=== PATIENT | male | born 1950 | race Caucasian/White ===

== ENCOUNTER 2020-03-21 11:34 | Observation (INO) | payer MEDICARE, SELFPAY ==
[2020-03-21] VITALS (12 sets, daily range): BP systolic 144–171; BP diastolic 63–97; PULSE 68–98; RESP 12–18; TEMP 36.6–36.8; O2SAT 95–98; BMI 34.9; BMI 31.2
--- NOTE | 2020-03-21 11:46 | CT_ITS ---
We are attempting to reach an attending provider to discuss findings. An addendum with communication details will be sent when the communication is complete. STUDY: CTA HEAD AND NECK WITH CONTRAST REASON FOR EXAM: Male, 70 years old. Expressive aphasia, garbled speech, confusion, trouble following commands. RADIATION DOSAGE (If Supplied By Facility): CTDIvol = ( 22.18 ) mGy, DLP = ( 807.76 ) mGycm TECHNIQUE: CT angiography was performed with a multi-detector CT scanner. Data acquisition was obtained from the skull base through the vertex following intravenous administration of IV 100mL Isovue-370. MIP images were reconstructed from the axial data set. Post-processing of the angiographic images was performed, with multiplanar reformation and 3D reconstruction. Individualized dose optimization techniques were used for this CT. COMPARISON: No relevant priors. FINDINGS: Normal bilateral petrous carotid arteries. There is calcified plaque formation of the right cavernous carotid artery, without a cross-sectional luminal stenosis. There is calcified plaque formation of the left cavernous carotid artery, without a cross-sectional luminal stenosis. Normal right A1 segments of the anterior cerebral artery. Normal left A1 segments of the anterior cerebral artery. Normal intact anterior communicating artery (ACOM). Normal bilateral A2 segments of the anterior cerebral arteries. Normal right M1 and M2 segments of the middle cerebral arteries, with a normal M1 bifurcation. Normal left M1 and M2 segments of the middle cerebral arteries, with a normal M1 bifurcation. Normal right posterior communicating artery (PCOM). Normal left posterior communicating artery (PCOM). Normal bilateral vertebral arteries. Normal basilar artery with a normal basilar bifurcation. The visualized bilateral superior cerebellar (SCA) arteries are normal. Normal bilateral P1, P2 and visualized P3 segments of the posterior cerebral arteries. There is no demonstrated aneurysm of the [place]. There is opacification of the right sphenoid sinus and partial opacification of the ethmoid sinuses and left maxillary sinus. AORTIC ARCH: There is atherosclerotic calcific plaque formation of the aortic arch and great vessels arising from the aortic arch, without a hemodynamically significant stenosis. There is a bovine origin of the great vessels with a common origin of the brachiocephalic and left common carotid artery. Normal origin of the left subclavian artery. Atherosclerotic plaque formation at the origin of the left subclavian artery. RIGHT CAROTID ARTERIES: Normal right common carotid artery (CCA). Normal right common carotid bulb. There is mild atherosclerotic plaque formation of the origin of the right internal carotid artery with less than 50% cross sectional diameter stenosis. Normal visualized cervical portion of the right internal carotid artery. Normal origin of the right external carotid artery (ECA). LEFT CAROTID ARTERIES: Normal left common carotid artery (CCA). Normal left common carotid bulb. There is moderate atherosclerotic plaque formation of the origin of the left internal carotid artery with an estimated stenosis of 50-69% stenosis. Normal visualized cervical portion of the left internal carotid artery. Normal origin of the left external carotid artery (ECA). VERTEBRAL ARTERIES: There is enhancement within the bilateral vertebral arteries with a small right vertebral artery, and a dominant left vertebral artery. Nonstenotic calcific plaque is seen in the midportion of the left vertebral artery. CT/STROKE CTA Head AND Neck W/Con IMPRESSION: 50-69% stenosis at the origin of the left internal carotid artery. Less than 50% stenosis at the origin of the right internal carotid artery are Dominant left vertebral artery. Opacification of the right sphenoid sinus and partial opacification of the left maxillary sinus and ethmoid sinus. Electronically Signed: Maxi Mujica, at 12:18 EST , Service support ,
--- NOTE | 2020-03-21 11:46 | CT_ITS ---
STUDY: CT BRAIN WITHOUT CONTRAST REASON FOR EXAM: Male, 70 years old. Expressive aphasia, garbled speech, confusion, trouble following commands. RADIATION DOSAGE (If Supplied By Facility): CTDIvol = ( ) mGy, DLP = ( ) mGycm TECHNIQUE: Transaxial CT imaging of the brain was performed without administration of intravenous contrast material. Individualized dose optimization techniques were used for this CT. COMPARISON: None. FINDINGS: There is cerebral atrophy with widening of the extra-axial spaces and ventricular dilatation. There are areas of decreased attenuation within the white matter tracts of the supratentorial brain, consistent with microvascular disease changes. There is no intracranial hemorrhage. There are no findings of an acute ischemic infarction. There is moderate paranasal sinus disease. CT/STROKE Brain/Head without Cont IMPRESSION: There is no intracranial hemorrhage. N.B. : The above information has been verbally conveyed by Bebe Govea MD to Kunal Gracia MD, on 03/21/2020 12:17:24 (ET). Electronically Signed: Bebe Govea MD at 12:18 EST Tel , Service support ,
--- NOTE | 2020-03-21 11:48 | ED.DCSUM_ITS ---
- ER Visit Summary Date of Service: 03/21/20 Chief Complaint: Difficulty expressing thoughts History of Present Illness: The patient is a [address] Delvis Jon iii. He went to bed last night at 7 PM and was normal. reports that she got up and try to talk to him at 1030 this morning and he is unable to express his thoughts. Patient denies any other symptoms. No numbness, weakness, vertigo, or off balance. Review of systems: General: No fever, chills, cold sweats. Cardiovascular: No chest pain, palpitations. Respiratory: No cough, shortness of breath, dyspnea on exertion. Gastrointestinal: No abdominal pain, nausea, vomiting, diarrhea, melena, or hematochezia. Genitourinary: No dysuria, frequency, hematuria. Skin: No rash. Neuro: No headache, numbness, weakness. Physical Examination: Vitals: Stable. Afebrile. General: Well-nourished and well-developed. Head: Normocephalic atraumatic. Neck: Supple, no lymphadenopathy. No JVD. Nontender. Cardiovascular: Regular rate and rhythm. No murmurs. Respiratory: No respiratory distress. Clear to auscultation bilaterally. Abdominal: Soft, nontender, nondistended, normal bowel sounds. No guarding, rebound, or peritoneal signs. Back: Nontender. Extremities: Nontender, no edema. Skin: Normal color, no rash. Neurologic: Alert and oriented ?3. Cranial nerves II through XII are intact. Normal strength and sensation. He does have a dense expressive aphasia and dysarthria. His NIH scale is 3. Psych: Normal affect. Test Results: EKG is sinus with a first-degree AV block rate of 87. There are PVCs and nonspecific ST changes. Troponin is negative. Potassium is 3.4. H&H is 20.8 and 64.0. Monocytes 15. Clinical Impression(s) from Imaging Studies Brain CT 03/21/20 11:46 IMPRESSION: There is no intracranial hemorrhage. N.B. : The above information has been verbally conveyed by Bebe Govea MD to Kunal Gracia MD, on 03/21/2020 12:17:24 (ET). Electronically Signed: Bebe Govea MD at 12:18 EST Tel , Service support , ADDENDUM: 03/21/20 1225 IMPRESSION: There is no intracranial hemorrhage. N.B. : The above information has been verbally conveyed by Bebe Govea MD to Kunal Gracia MD, on 03/21/2020 12:17:24 (ET). Electronically Signed: Bebe Govea MD at 12:18 EST Tel , Service support , Head/Neck CTA 03/21/20 11:46 IMPRESSION: 50-69% stenosis at the origin of the left internal carotid artery. Less than 50% stenosis at the origin of the right internal carotid artery are Dominant left vertebral artery. Opacification of the right sphenoid sinus and partial opacification of the left maxillary sinus and ethmoid sinus. Electronically Signed: Maxi Mujica, at 12:18 EST , Service support , ADDENDUM: 03/21/20 1227 IMPRESSION: 50-69% stenosis at the origin of the left internal carotid artery. Less than 50% stenosis at the origin of the right internal carotid artery are Dominant left vertebral artery. Opacification of the right sphenoid sinus and partial opacification of the left maxillary sinus and ethmoid sinus. N.B. : The above information has been verbally conveyed by Bebe Govea MD to Kunal Cisse MD, on 03/21/2020 12:20:09 (ET). Electronically Signed: Maxi Mujica, at 12:18 EST , Service support , Chest X-Ray 03/21/20 12:10 IMPRESSION: Borderline cardiomegaly. Electronically Signed: Maxi Mujica, at 12:26 EST , Service support , Emergency Department Course and Treatment: Patient's NIH scale is 3. He is not a TPA candidate due to timeframe. It is unclear when this started, but he was last known well 16-1/2 hours ago. Treatment Plan: Patient will be discussed with the hospitalist and admitted for further evaluation and treatment. Disposition: Admitted in stable condition. Impression: 1. Expressive aphasia. 2. Stroke. This note was generated with [employer] dictation software. It may contain incorrect words, spelling, and punctuation that were not noted in review of the chart prior to signing ED Disposition - Plan for ED Patient: Referrals: Delvis Jon Jr., MD [Primary Care Provider] -
[2020-03-21 11:54] LABS: Absolute Lymphocyte Count 1.45 X10^3/uL (0.83-4.51); Absolute Neutrophil Count 3.7 X10^3/uL (2.0-7.7); Basophil# 0.03 X10^3/uL; Basophil% 0.5 % (0-1); Eosinophil# 0.14 X10^3/uL; Eosinophils% 2.2 % (0-5); Lymphocyte # 1.45 X10^3/ul (4.0); Mean Corp Hgb Conc 32.5 g/dL (32-36); Mean Corpuscular Hgb 29.9 pg (27.0-32.0); Mean Corpuscular Volume 92.1 fL (80-94); Mean Platelet Vol. 9.2 fl (6.2-12.0); Monocyte# 0.93 X10^3/uL; Monocyte% 14.7 % (0-10); NRBC Flagged by Analyzer 0 % (0-5); Neutrophil # 3.69 X10^3/uL (2.7-7.7); Neutrophil % 58.5 % (47-70); Platelet Count 246 K/mm3 (150-450); RBC Distribution Width CV 14.6 % (11.6-14.6); RBC Distribution Width SD 47.9 fl (35.1-43.9); Red Blood Count 6.95 M/mm3 (4.6-6.2); White Blood Count 6.3 K/mm3 (4.4-11.0)
[2020-03-21 12:01] LABS: Hemoglobin 20.8 g/dL (13.0-16.5)
[2020-03-21 12:07] LABS: Anion Gap 7 (5-15); BUN 14 mg/dL (7-18); BUN/Creat Ratio 11.8 RATIO (10-20); Calcium,Total 9.5 mg/dL (8.5-10.1); Chloride 104 mmol/L (98-107); Creatinine, Serum 1.19 mg/dL (0.70-1.30); EST Glomerular Filtration Rate 64 mL/min (>60); Est Glom Filt Rate - Afr Amer 78 mL/min (>60); Estimated Creatinine Clearance 53.23 ml/min; Glucose 105 mg/dL (74-106); Potassium 3.4 mmol/L (3.5-5.1); Sodium Level 140 mmol/L (136-145)
--- NOTE | 2020-03-21 12:10 | RAD_ITS ---
STUDY: X-RAY CHEST REASON FOR EXAM: Male, 70 years old. Unable to express self, confused, unable to understand directions. went to bed last night okay, said at 10am he went to lay down because he said something wasn''t right. reports garbled speech TECHNIQUE: Single AP portable view of the chest. COMPARISON: None. FINDINGS: EKG electrodes are seen. The lungs are clear and expanded. There is no demonstrated pleural abnormality. There is borderline cardiomegaly. Normal mediastinum and demetrius. Normal visualized pulmonary arteries. There is atherosclerotic calcification of the aortic arch with tortuosity. Normal visualized thoracic spine. Normal visualized ribs, clavicles, and shoulders. There is no demonstrated abnormality of the visualized soft tissue structures of the upper abdomen. RAD/Chest 1 View IMPRESSION: Borderline cardiomegaly. Electronically Signed: Maxi Mujica, at 12:26 EST , Service support ,
[2020-03-21 12:35] LABS: Partial Thromboplast Time 25.6 Seconds (24.1-36.2)
[2020-03-21] MEDS: Aspirin 81 MG TAB.CHEW 324 MG PO (12:59)
[2020-03-21] MEDS: 0.9% Normal Saline 1,000 ML 999 ML IV (13:02)
--- NOTE | 2020-03-21 13:44 | MRI_ITS ---
STUDY: MRI BRAIN WITHOUT CONTRAST REASON FOR EXAM: Male, 70 years old. Symptoms of stroke. Aphasia. TECHNIQUE: Standardized multiplanar fat and water weighted pulse sequences were obtained. COMPARISON: CT brain without contrast and CTA head and neck earlier same date. FINDINGS: Acute infarct within the left posterior parietal cortex, and extending slightly into the posterior insular cortex, posterior aspect of the left MCA territory. Very little of the underlying white matter is involved. No hemorrhage. Attenuation of flow voids within adjacent peripheral cortical left MCA branches compatible with diminished flow or occlusion. The more proximal central flow voids are preserved. No other infarct. No hemorrhage, mass, midline shift, or hydrocephalus. Mild underlying chronic microangiopathic change in the white matter. Normal brain volume for age. No acute finding in the calvarium or extracranial soft tissues. Opacification of the ethmoid air cells, right sphenoid sinus, and polypoid mucosal thickening of the bilateral maxillary sinuses similar to previous. MRI/Brain without Contrast IMPRESSION: Acute nonhemorrhagic infarct involving the cortex of the left posterior parietal lobe and a small portion of the posterior insula. Posterior aspect of the left MCA territory. Electronically Signed: Charly Hou, at 22:14 EST Tel , Service support ,
--- NOTE | 2020-03-21 13:44 | ECHOD_ITS ---
Reason For Study: TIA/CVA Procedure This was a 2D Doppler, Color Flow transthoracic echocardiogram. The study was technically difficult. Exam performed portable in patient room. Left Ventricle Normal LV size. Sigmoid septum. Left ventricular systolic function is normal. The estimated ejection fraction is 65 %. No evidence for diastolic dysfunction. No regional wall motion abnormalities noted. Right Ventricle Normal RV size. Normal systolic function. Atria The left atrium is mildly enlarged. Normal right atrium. No doppler evidence for ASD. Bubble contrast study negative for right to left interatrial shunt. Mitral Valve There is no mitral annular calcification. Normal mitral valve. Trivial mitral valve insufficiency. Tricuspid Valve Normal tricuspid valve. Trivial tricuspid valve insufficiency. Unable to estimate RV systolic pressure/pulmonary artery pressure due to technically difficult study. Aortic Valve Trisinus/trileaflet aortic valve. Mild focal aortic valve calcification. Pulmonic Valve The pulmonic valve is not well visualized. Trivial pulmonic valve insufficiency. Great Vessels Normal sized aortic root. Calcified aortic root. Pericardium/Pleural No pericardial effusion. Medication Performed a rapid injection of agitated mix of 9 cc saline and 1cc air to assess for atrial septal defect. MMode/2D Measurements & Calculations LVIDd: 4.9 cm IVSd: 1.2 cm Ao root diam: 3.0 cm LVIDs: 3.2 cm LVPWd: 1.2 cm RVDd: 4.1 cm FS: 35.1 % LAV(MOD-bp): 48.3 ml LA A4 area: 13.6 cm2 LA dimension(2D): 5.0 cm LAV(MOD-bp) Indexed: 23.1 ml/m2 LAV(MOD-sp2): 69.0 ml LAV(MOD-sp4): 31.8 ml RA A4 area: 8.7 cm2 Doppler Measurements & Calculations MV E max catracho: 52.4 cm/sec Lat Peak E' Catracho: 7.2 cm/sec Med Peak E' Catracho: 5.1 cm/sec MV A max catracho: 99.8 cm/sec E/E' lat: 7.2 E/E' med: 10.3 MV E/A: 0.52 Ao V2 max: 135.5 cm/sec LV V1 max: 99.0 cm/sec PA V2 max: 101.9 cm/sec Ao max P.3 mmHg LV V1 max P.9 mmHg Ao V2 mean: 99.8 cm/sec Ao mean P.3 mmHg Ao V2 VTI: 26.7 cm Interpretation Summary The study was technically difficult. Left ventricular systolic function is normal. The estimated ejection fraction is 65 %. Sigmoid septum. The left atrium is mildly enlarged. Trivial mitral valve insufficiency. Trivial tricuspid valve insufficiency. Mild focal aortic valve calcification. Trivial pulmonic valve insufficiency. Calcified aortic root. Unable to estimate RV systolic pressure/pulmonary artery pressure due to technically difficult study. No evidence for diastolic dysfunction. Bubble contrast study negative for right to left interatrial shunt. Ordering Physician: Bear Ram Referring Physician: Delvis Jon Performed By: Sari Gastelum, ABHAY, RVT
[2020-03-21] MEDS: 0.9% Normal Saline 1,000 ML 100 ML IV (15:42)
[2020-03-21] MEDS: Enoxaparin 40 MG/0.4 ML Syringe SC (15:43)
[2020-03-21] MEDS: Aspirin 81 MG TAB.CHEW PO (15:48)
--- NOTE | 2020-03-21 17:18 | HP.PCM_ITS ---
History of Present Illness Date of Admission: 03/21/20 Chief Complaint: Aphasia The patient is a 70 year old M with a PMH as below presents to the hospital with expressive aphasia. He went to bed last night around 7 PM and was normal. He woke up this morning and did not notice anything that was off except for when his interacted with him at around 1030 she could not understand what he was trying to say. He denies any focal neurologic symptoms other than the numbness. No fevers or chills or cough. His symptoms started to improve in the ER, and on of their evaluation he had an NIH of 3. On admission his NIH had improved to a 1. CTA of the head and neck did not demonstrate any large vessel occlusion, he is a 50 to 69% stenosis in the origin of the left internal carotid artery as well as a less than 50% stenosis in the origin of the right internal carotid artery. CT brain was unremarkable. Past Medical History Allergies No Known Allergies Allergy (Verified 03/21/20 11:41) Home Medications: Ambulatory Orders Medication Instructions Recorded Amlodipine Besylate 5 mg PO DAILY 03/21/20 Surgical History: no surgical history Smoking Status: Never smoker Alcohol: None Drugs: None - *Family History Maternal History Items: Cancer Review of Systems Constitutional: Denies: Chills, Fever, Weight Change HEENT: Denies: Head Aches, Sinus Congestion, Sinus Drainage Cardiovascular: Denies: Chest Pain, Palpitations Respiratory: Denies: Cough, Shortness of breath at rest, Sputum production Gastrointestinal: Denies: Abdominal Pain, Nausea, Vomiting Genitourinary: Denies: Dysuria Musculoskeletal: Denies: Joint Pain, Joint Tenderness Skin: Denies: Rash, Wounds Neurological: Reports: Change in Speech. Denies: Focal weakness, Numbness, Tingling Psychiatric: Denies: Anxiety, Depression, Homicidal Ideations, Suicidal Ideations Hematologic/ Lymphatic: Denies: Easy Bruising, Easy Bleeding VTE Information - Inpt Only VTE Present on Admission: No - Physical Exam Vitals/I&O's: Vital Signs Temp Pulse Resp BP Pulse Ox 97.8 F 87 18 157/78 H 97 03/21/20 13:46 03/21/20 14:44 03/21/20 13:46 03/21/20 13:46 03/21/20 13:46 Oxygen Delivery Method Room Air Weight: 217 lb 9.54 oz Body Mass Index (BMI) 31.2 Finger Stick Blood Glucose 114 Intake and Output for Last 24 Hours 03/19/20 03/20/20 03/21/20 23:59 23:59 23:59 Intake Total 999 / 999 Balance 999 / 999 General: Alert, Oriented x3, Cooperative, No apparent distress HEENT: Atraumatic, PERRLA, EOMI, Normocephalic Oral: Moist Mucosa Neck: Supple, No JVD Lungs: Normal air movement, No rhonchi, No wheeze, No rales, Diminished Cardiovascular: Regular rate, Regular Rhythm, Normal S1, Normal S2, No murmurs Abdomen: Soft, Non Tender, Non-Distended, No Hepato-splenomegaly Extremities: No edema, Capillary Refill Less than 3 Seconds Skin: No rashes, No breakdown Neurological: Cranial nerves II-XII grossly intact, Deep Tendon Reflexes 2+/4 and Symmetrical, Motor Exam 5/5 strength throughout, Sensory exam intact to l ight touch and pain, - - He does have a fairly significant expressive aphasia. There may also be some right-sided neglect. No hemianopsia. Psych/Mental Status: Normal Affect, Appropriate Laboratory Results 03/21/20 11:40: WBC 6.3, RBC 6.95 H, Hgb 20.8 H*, Hct 64.0 H, MCV 92.1, MCH 29.9, MCHC 32.5, RDW Std Deviation 47.9 H, RDW Coeff of [place] 14.6, Plt Count 246, MPV 9.2, Immature Gran % (Auto) 1.100 H, Neut % (Auto) 58.5, Lymph % (Auto) 23.0, [place] % (Auto) 14.7 H, Eos % (Auto) 2.2, Baso % (Auto) 0.5, Absolute Neuts (auto) 3.7, Absolute Lymphs (auto) 1.45, Nucleated RBC % 0 03/21/20 11:40: PT 13.0, INR 1.0, APTT 25.6 03/21/20 11:40: Sodium 140, Potassium 3.4 L, Chloride 104, Carbon Dioxide 29.0, Anion Gap 7, BUN 14, Creatinine 1.19, Estim Creat Clear Calc 53.23, Est GFR (MDRD) Af Amer 78, Est GFR (MDRD) Non-Af 64, BUN/Creatinine Ratio 11.8, Glucose 105, Calcium 9.5, Troponin I < 0.015 Current Medications Aspirin (Aspirin 81 Mg Tab.Chew) 81 mg PO DAILY@0800 [facility] Last Admin: 03/21/20 15:48 Dose: 81 mg Documented by: Atorvastatin Calcium (Atorvastatin Calcium 80 Mg Tablet) 80 mg PO QHS [facility] Enoxaparin Sodium (Enoxaparin 40 Mg/0.4 Ml Syringe) 40 mg SC DAILY [facility] Last Admin: 03/21/20 15:43 Dose: 40 mg Documented by: Hydralazine HCl (Hydralazine 20 Mg/Ml Vial) 5 mg IV Q30M PRN PRN Reason: to maintain BP goals Sodium Chloride () 1,000 mls @ 100 mls/hr IV .Q10H [facility] Last Admin: 03/21/20 15:42 Dose: 100 mls/hr Documented by: Labetalol HCl (Labetalol (Prefilled) 20 Mg/4 Ml) 10 - 20 mg IV Q10M PRN PRN PRN Reason: to Maintain BP Goals Sodium Chloride (0.9% Saline Lock 10 Ml Syringe) 10 - 40 ml IV UD PRN PRN Reason: SALINE FLUSH Assessment/Plan 1. Acute CVA versus TIA/HTN -He presented with expressive aphasia outside the window for TPA. He is also had improvement while here. He is not on any aspirin at home so we will start him on an aspirin as well as Lipitor -Allow for permissive hypertension as well as as needed labetalol and hydralazine -We will plan for an MRI, and if normal will plan for discharge in the morning -We will have speech evaluate him to be able to start a diet secondary to his aphasia -He also probably has a component of right hemineglect he did not realize he was holding my pen in his hand when asked to draw a clock. He was unable to draw clock accurately. -Low-dose IV fluids for tonight -We will hold his Norvasc -We will obtain an echo in the morning DVT: Lovenox OBSV E&M: [id number] Initial observation care L2
[2020-03-21] MEDS: Atorvastatin Calcium 80 MG Tablet PO (21:49)
[2020-03-22] VITALS (8 sets, daily range): BP systolic 147–164; BP diastolic 65–90; PULSE 42–88; RESP 15–17; TEMP 36.9–37.3; O2SAT 93–96; BMI 31.2
[2020-03-22] MEDS: 0.9% Normal Saline 1,000 ML 100 ML IV ×2 (01:30→12:30)
[2020-03-22 05:17] LABS: Cholesterol 183 mg/dL (200); High Density Lipoprotein 45 mg/dL; Triglycerides 114 mg/dL; Very Low Density Lipoprotein 23 mg/dL (5-40)
[2020-03-22 07:20] LABS: Bedside Glucose 114 mg/dL (70-110)
--- NOTE | 2020-03-22 07:31 | TELEMED_ITS ---
[facility] Telemed has confirmed receipt of a request for visit. This document confirms receipt of the order initiating the consult. To find the results of the consultation, please view the patient's reports for the scanned Telemed Consult.
[2020-03-22 07:51] LABS: Absolute Lymphocyte Count 1.22 X10^3/uL (0.83-4.51); Absolute Neutrophil Count 4.6 X10^3/uL (2.0-7.7); Basophil# 0.04 X10^3/uL; Basophil% 0.6 % (0-1); Eosinophil# 0.15 X10^3/uL; Eosinophils% 2.2 % (0-5); Lymphocyte # 1.22 X10^3/ul (4.0); Mean Corp Hgb Conc 33.3 g/dL (32-36); Mean Corpuscular Hgb 30.4 pg (27.0-32.0); Mean Corpuscular Volume 91.3 fL (80-94); Mean Platelet Vol. 9.5 fl (6.2-12.0); Monocyte# 0.78 X10^3/uL; Monocyte% 11.5 % (0-10); NRBC Flagged by Analyzer 0 % (0-5); Neutrophil # 4.56 X10^3/uL (2.7-7.7); Neutrophil % 67.4 % (47-70); Platelet Count 246 K/mm3 (150-450); RBC Distribution Width CV 14.3 % (11.6-14.6); RBC Distribution Width SD 47.7 fl (35.1-43.9); Red Blood Count 6.19 M/mm3 (4.6-6.2); White Blood Count 6.8 K/mm3 (4.4-11.0)
[2020-03-22 07:53] LABS: Hematocrit 56.5 % (40-54)
[2020-03-22 07:54] LABS: Hemoglobin 18.8 g/dL (13.0-16.5)
[2020-03-22 07:58] LABS: Anion Gap 6 (5-15); BUN 9 mg/dL (7-18); BUN/Creat Ratio 9.2 RATIO (10-20); Calcium,Total 8.1 mg/dL (8.5-10.1); Chloride 110 mmol/L (98-107); Creatinine, Serum 0.98 mg/dL (0.70-1.30); EST Glomerular Filtration Rate 80 mL/min (>60); Est Glom Filt Rate - Afr Amer 97 mL/min (>60); Estimated Creatinine Clearance 71.39 ml/min; Glucose 112 mg/dL (74-106); Potassium 3.7 mmol/L (3.5-5.1); Sodium Level 139 mmol/L (136-145)
[2020-03-22] MEDS: Enoxaparin 40 MG/0.4 ML Syringe SC (08:44)
[2020-03-22] MEDS: Aspirin 81 MG TAB.CHEW PO (08:45)
--- NOTE | 2020-03-22 09:18 | CASEMGMT ---
Addendum entered by Lauren Last 03/22/20 10:25: Patient scored a 0 on PHQ 9. He denies any need for counseling resources. Lauren PEACE Original Note: SW completed a PHQ 9 with patient as he did have a Stroke. He reluctantly agreed to Depression Screen as he feels he is fine and wants to get out of the hospital. Lauren GRAJEDA MSW
[2020-03-22 10:16] LABS: Pathologist Review Reviewed
[2020-03-22 10:22] LABS: Pathologist Review Reviewed
[2020-03-22 12:08] LABS: Carboxyhemoglobin Frac (CO) 2.4 % (0.0-1.5)
--- NOTE | 2020-03-22 13:15 | PCM.DC ---
You will use the following diet at home:: Cardiac Your food should be the consistency of: Regular Your liquids should be the consistency of: Regular/Thin Discharge Activity: Return to Normal Activity Call your doctor if you observe: Fever of 101 or Higher, Shortness of breath, Dizziness, Fainting spells, Swelling in the ankles, Chest pain, Increased palpitations (irregular heartbeat) Instructions: Hemoglobin, What Is Ischemic Stroke? Additional Instructions: Follow-up with your primary care doctor in 3 to 5 days to have a repeat CBC to evaluate your hemoglobin. You had to have phlebotomy performed on this admission given to the high concentration of hemoglobin, this may need to be repeated as an outpatient. Allergies/Adverse Reactions: Allergies No Known Allergies Allergy (Verified 03/21/20 11:41) Medications to take at Discharge Amlodipine Besylate 5 mg PO DAILY 03/21/20 Aspirin [Aspirin, Baby] 81 mg PO DAILY@0800 #30 tab.chew 03/22/20 Atorvastatin Calcium [Lipitor] 80 mg PO QHS #30 tab 03/22/20 Clopidogrel Bisulfate [Plavix] 75 mg PO DAILY #21 tab 03/22/20 The following prescriptions were given: Aspirin [Aspirin, Baby] 81 mg PO DAILY@0800 #30 tab.chew Transmission Status: Pending to [id number] Atorvastatin Calcium [Lipitor] 80 mg PO QHS #30 tab Transmission Status: Pending to [id number] Clopidogrel Bisulfate [Plavix] 75 mg PO DAILY #21 tab Transmission Status: Pending to [id number] Orders to be completed after discharge: Cardiac Holter Monitor, Set-Up [[facility]] Location: None Selected Primary Care Physician: Delvis Jon Jr., MD [Primary Care Provider] - Please follow up with your Primary Care Physician in: 3-5 days Test Results: Test results from this visit will be discussed in further detail at your follow-up appointment, if applicable. Please Follow Up With: Amador Fall MD When: 1-2 weeks
--- NOTE | 2020-03-22 13:17 | PCM.DC.SUM ---
Discharge Date and Diagnosis Date of Admission: 03/21/20 Date of Discharge: 03/22/20 Hospital Course and Treatment Imaging Results: Clinical Impression(s) from Imaging Studies Brain CT 03/21/20 11:46 IMPRESSION: There is no intracranial hemorrhage. N.B. : The above information has been verbally conveyed by Bebe Govea MD to Kunal Gracia MD, on 03/21/2020 12:17:24 (ET). Electronically Signed: Bebe Govea MD at 12:18 EST Tel , Service support , ADDENDUM: 03/21/20 1225 IMPRESSION: There is no intracranial hemorrhage. N.B. : The above information has been verbally conveyed by Bebe Govea MD to Kunal Gracia MD, on 03/21/2020 12:17:24 (ET). Electronically Signed: Bebe Govea MD at 12:18 EST Tel , Service support , Head/Neck CTA 03/21/20 11:46 IMPRESSION: 50-69% stenosis at the origin of the left internal carotid artery. Less than 50% stenosis at the origin of the right internal carotid artery are Dominant left vertebral artery. Opacification of the right sphenoid sinus and partial opacification of the left maxillary sinus and ethmoid sinus. Electronically Signed: Maxi Mujica, at 12:18 EST , Service support , ADDENDUM: 03/21/20 1227 IMPRESSION: 50-69% stenosis at the origin of the left internal carotid artery. Less than 50% stenosis at the origin of the right internal carotid artery are Dominant left vertebral artery. Opacification of the right sphenoid sinus and partial opacification of the left maxillary sinus and ethmoid sinus. N.B. : The above information has been verbally conveyed by Bebe Govea MD to Kunal Cisse MD, on 03/21/2020 12:20:09 (ET). Electronically Signed: Maxi Mujica, at 12:18 EST , Service support , Chest X-Ray 03/21/20 12:10 IMPRESSION: Borderline cardiomegaly. 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 Posterior aspect of the left MCA territory. 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 Posterior aspect of the left MCA territory. N.B. : Angela Darby/charge nurse , RN, confirmed on 03/21/2020 22:18:14 (ET) that the healthcare facility has received the radiology report. Electronically Signed: Charly Hou, at 22:14 EST Tel , Service support , Echo: Interpretation Summary The study was technically difficult. Left ventricular systolic function is normal. The estimated ejection fraction is 65 %. Sigmoid septum. The left atrium is mildly enlarged. Trivial mitral valve insufficiency. Trivial tricuspid valve insufficiency. Mild focal aortic valve calcification. Trivial pulmonic valve insufficiency. Calcified aortic root. Unable to estimate RV systolic pressure/pulmonary artery pressure due to technically difficult study. No evidence for diastolic dysfunction. Bubble contrast study negative for right to left interatrial shunt. Operations: None Procedures: 2-D Echocardiogram Summary of Care Provided: Per HPI: The patient is a 70 year old M with a PMH as below presents to the hospital with expressive aphasia. He went to bed last night around 7 PM and was normal. He woke up this morning and did not notice anything that was off except for when his interacted with him at around 1030 she could not understand what he was trying to say. He denies any focal neurologic symptoms other than the numbness. No fevers or chills or cough. His symptoms started to improve in the ER, and on of their evaluation he had an NIH of 3. On admission his NIH had improved to a 1. CTA of the head and neck did not demonstrate any large vessel occlusion, he is a 50 to 69% stenosis in the origin of the left internal carotid artery as well as a less than 50% stenosis in the origin of the right internal carotid artery. CT brain was unremarkable. Hospital Course: 1. Acute CVA versus TIA/HTN -He presented with expressive aphasia outside the window for TPA. He is also had improvement while here. 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 We will also obtain a Holter monitor for 48 hours however I do think that his stroke was likely caused by his polycythemia. Also discussed with the patient that he is not to drive a car until he sees neurology as an outpatient. -I discussed the plan for discharge with both him and his and they both expressed understanding of the risk benefits of going home and would like to go home today. 2. polycythemia -Unsure of the etiology. Both his hematocrit and his hemoglobin are severely elevated. As is his RBC count -He has slight improvement in his hemoglobin however I did discuss the case with Dr. Fall, who recommended a 500 cc phlebotomy as well as ordering an erythropoietin level as well as a coaxial hemoglobin level and a JAK2 mutation. Unfortunately we are only able to get out about 250 cc, he will need to follow up with the patient as an outpatient and I do recommend that he have a CBC by his primary care doctor to make sure that his hemoglobin level is staying steady with a hematocrit below 50. - Physical Exam Vitals/I&O's: Vital Signs Temp Pulse Resp BP Pulse Ox 99.1 F 86 15 164/90 H 96 03/22/20 08:38 03/22/20 08:38 03/22/20 08:38 03/22/20 08:38 03/22/20 08:38 Oxygen Delivery Method Room Air Weight: 217 lb 9.54 oz Body Mass Index (BMI) 31.2 Finger Stick Blood Glucose 114 Intake and Output for Last 24 Hours 03/20/20 03/21/20 03/22/20 23:59 23:59 23:59 Intake Total 1375 / 1375 603.33 / 603.33 Balance 1375 / 1375 603.33 / 603.33 General: Alert, Oriented x3, Cooperative, No apparent distress HEENT: Atraumatic, PERRLA, EOMI, Normocephalic Oral: Moist Mucosa Neck: Supple, No JVD Lungs: Normal air movement, No rhonchi, No wheeze, No rales, Diminished Cardiovascular: Regular rate, Regular Rhythm, Normal S1, Normal S2, No murmurs Abdomen: Soft, Non Tender, Non-Distended, No Hepato-splenomegaly Extremities: No edema, Capillary Refill Less than 3 Seconds Skin: No rashes, No breakdown Neurological: Cranial nerves II-XII grossly intact, Deep Tendon Reflexes 2+/4 and Symmetrical, Motor Exam 5/5 strength throughout, Sensory exam intact to light touch and pain, - - He does have a fairly significant expressive aphasia. There may also be some right-sided neglect. No hemianopsia. Psych/Mental Status: Normal Affect, Appropriate Laboratory Results 03/21/20 11:38: POC Glucose 114 H 03/21/20 11:40: Diff Path Review Reviewed 03/22/20 04:50: Triglycerides 114, Cholesterol 183, LDL Cholesterol 115, VLDL Cholesterol 23, HDL Cholesterol 45 03/22/20 04:50: WBC 6.8, RBC 6.19, Hgb 18.8 H*, Hct 56.5 H, MCV 91.3, MCH 30.4, MCHC 33.3, RDW Std Deviation 47.7 H, RDW Coeff of Bonifacio 14.3, Plt Count 246, MPV 9.5, Immature Gran % (Auto) 0.300, Neut % (Auto) 67.4, Lymph % (Auto) 18.0 L, Greene % (Auto) 11.5 H, Eos % (Auto) 2.2, Baso % (Auto) 0.6, Absolute Neuts (auto) 4.6, Absolute Lymphs (auto) 1.22, Nucleated RBC % 0, Diff Path Review Reviewed 03/22/20 04:50: Sodium 139, Potassium 3.7, Chloride 110 H, Carbon Dioxide 23.0, Anion Gap 6, BUN 9, Creatinine 0.98, Estim Creat Clear Calc 71.39, Est GFR (MDRD) Af Amer 97, Est GFR (MDRD) Non-Af 80, BUN/Creatinine Ratio 9.2 L, Glucose 112 H, Calcium 8.1 L 03/22/20 11:50: VBG Carboxyhemoglobin 2.4 H 03/22/20 11:50: Erythropoietin Pending, JAK2 Mutation Pending, JAK2 Mutation (PCR) Pending Current Medications Aspirin (Aspirin 81 Mg Tab.Chew) 81 mg PO DAILY@0800 [facility] Last Admin: 03/22/20 08:45 Dose: 81 mg Documented by: Atorvastatin Calcium (Atorvastatin Calcium 80 Mg Tablet) 80 mg PO QHS [facility] Last Admin: 03/21/20 21:49 Dose: 80 mg Documented by: Enoxaparin Sodium (Enoxaparin 40 Mg/0.4 Ml Syringe) 40 mg SC DAILY [facility] Last Admin: 03/22/20 08:44 Dose: 40 mg Documented by: Hydralazine HCl (Hydralazine 20 Mg/Ml Vial) 5 mg IV Q30M PRN PRN Reason: to maintain BP goals Sodium Chloride () 1,000 mls @ 100 mls/hr IV .Q10H [facility] Last Admin: 03/22/20 01:30 Dose: 100 mls/hr Documented by: Labetalol HCl (Labetalol (Prefilled) 20 Mg/4 Ml) 10 - 20 mg IV Q10M PRN PRN PRN Reason: to Maintain BP Goals Sodium Chloride (0.9% Saline Lock 10 Ml Syringe) 10 - 40 ml IV UD PRN PRN Reason: SALINE FLUSH Discharge Activity: Return to Normal Activity Call your doctor if you observe: Fever of 101 or Higher, Shortness of breath, Dizziness, Fainting spells, Swelling in the ankles, Chest pain, Increased palpitations (irregular heartbeat) Home Medications: Medications to take at Discharge Amlodipine Besylate 5 mg PO DAILY 03/21/20 Aspirin [Aspirin, Baby] 81 mg PO DAILY@0800 #30 tab.chew 03/22/20 Atorvastatin Calcium [Lipitor] 80 mg PO QHS #30 tab 03/22/20 Clopidogrel Bisulfate [Plavix] 75 mg PO DAILY #21 tab 03/22/20 Following Prescriptions Were Given to Patient: Aspirin [Aspirin, Baby] 81 mg PO DAILY@0800 #30 tab.chew Transmission Status: [facility] Atorvastatin Calcium [Lipitor] 80 mg PO QHS #30 tab Transmission Status: Received by [facility] Clopidogrel Bisulfate [Plavix] 75 mg PO DAILY #21 tab Transmission Status: Received by [facility] Other Amb Orders: Cardiac Holter Monitor, Set-Up [[facility]] Location: None Selected Primary Care Physician: Delvis Jon Jr., MD [Primary Care Provider] - Please follow up with your Primary Care Physician in: 3-5 days Please Follow Up With: Amador Fall MD When: 1-2 weeks Please Follow Up With: Jani Saucedo MD When: 2 weeks Patient Instructions: Hemoglobin, What Is Ischemic Stroke? Disposition: Home Minutes spent on discharge:: 35 Patient Condition:: Stable Medical Necessity - Tobacco Use Smoking Status: Never smoker Meaningful Use Info Meaningful Use Diagnoses (Choose all that apply): None applicable OBSV E&M: 39935 Observation care discharge
--- NOTE | 2020-03-22 17:40 | NURSING ---
1330 having hard tiome with access for blood letting nursers tried 5 times safety supervisor came was able to pobtain access patient keeps clotting off a fter few minites
--- NOTE | 2020-03-22 17:41 | NURSING ---
1500 obtained 150cc in blood letting bag will try to flush line and remove more.
--- NOTE | 2020-03-22 17:46 | NURSING ---
1530 spoke with said to take 50cc mote for total of 200 blood removal then dc patient . called for holter monitor to be placed
[2020-03-27 13:33] LABS: Erythropoietin 19.3 mIU/mL (2.6-18.5)
== END 2020-03-22 16:37 | disposition home or self-care (01) ==
LOC: ED 12:02 → PCU 13:14
PROVIDERS: Admitting Provider Family Medicine; Emergency Provider Emergency Medicine; Visit Provider Family Medicine
DX: R47.01 Aphasia (principal); I65.23 Occlusion and stenosis of bilateral carotid arteries; R29.703 NIHSS score 3; Z79.899 Other long term (current) drug therapy; D75.1 Secondary polycythemia; I08.3 Combined rheumatic disorders of mitral, aortic and tricuspid valves
CPT/HCPCS: 36415; 70450; 70496; 70498; 70551; 71045; 80048; 80061; 82375; 82668; 82962; 84484; 85025; 85610; 85730; 92523; 92610; 93005; 93306; 96360; 96361; 96372; 97161; 97166; 99218; 99285; J7030; Q9967; A4216; G0378

== ENCOUNTER → 2020-03-22 16:42 | Outpatient (CLI) | payer MEDICARE, SELFPAY ==
[2020-03-22 04:27] VITALS: BMI 31.2
== END ==
PROVIDERS: Referring Provider Internal Medicine Cardiovascular Disease; Visit Provider Internal Medicine Cardiovascular Disease
DX: I63.9 Cerebral infarction, unspecified (principal)
CPT/HCPCS: 93225; 93226

== ENCOUNTER → 2020-04-23 07:13 | Outpatient (CLI) | payer MEDICARE, SELFPAY ==
[2020-04-12 09:03] VITALS: BMI 31.2
[2020-04-19 16:17] VITALS: BMI 31.2
--- NOTE | 2020-04-23 07:15 | CT_ITS ---
STUDY: CT CHEST WITH CONTRAST REASON FOR EXAM: Male, 70 years old. SECONDARY POLYCYTHEMIA--R/O MALIGNANCY RADIATION DOSAGE (If Supplied By Facility): CTDIvol = ( 18.96 ) mGy, DLP = ( 1938.84 ) mGycm TECHNIQUE: Transaxial imaging was performed following intravenous administration of IV 100mL Isovue-300. Individualized dose optimization techniques were used for this CT. COMPARISON: None. FINDINGS: The lungs are normal. There is no demonstrated pleural abnormality. Normal heart and pericardium. Normal mediastinum. Normal hilar regions. Normal enhanced pulmonary arteries. Normal aorta arch and descending thoracic aorta. Normal osseous structures. There is no demonstrated abnormality of the visualized upper abdomen. CT/Chest WITH Contrast IMPRESSION: Normal enhanced CT Chest examination. Electronically Signed: Justo Palacio MD at 10:38 EST Tel , Service support ,
--- NOTE | 2020-04-23 07:15 | CT_ITS ---
STUDY: CT ABDOMEN AND PELVIS WITH CONTRAST REASON FOR EXAM: Male, 70 years old. SECONDARY POLYCYTHEMIA--R/O MALIGNANCY RADIATION DOSAGE (If Supplied By Facility): CTDIvol = ( 18.96 ) mGy, DLP = ( 1938.84 ) mGycm TECHNIQUE: Transaxial images were obtained from the dome of the diaphragm to the symphysis pubis without oral contrast. IV 100mL Isovue-300 was administered. Sagittal and coronal images were reconstructed. Individualized dose optimization techniques were used for this CT. COMPARISON: None. FINDINGS: The visualized lung bases are unremarkable. The visualized portions of the heart are within normal limits. Normal liver. Normal gallbladder and extrahepatic biliary system. Normal spleen. Normal pancreas. Normal bilateral adrenal glands. 9 x 10.5 cm necrotic enhancing mass of the upper pole the right kidney most worrisome for renal cell carcinoma. There is stranding of the pararenal fat worrisome for extension of tumor. Several prominent enhancing vessels are seen surrounding the tumor consistent with neovascularization. No definite tumor thrombus within the right renal vein or inferior vena cava. There is a 1.5 cm soft tissue nodule in Morison space between the inferior edge of the liver and the lateral cortex of the kidney on image 52 worrisome for metastasis. There are some small retroperitoneal lymph nodes which may represent early metastatic lymphadenopathy. Normal left kidney. Normal visualized stomach. Normal small intestine. Normal colon. The appendix is visualized and appears normal. Normal abdominal aorta. Normal inferior vena cava. Normal retroperitoneum. Normal urinary bladder. Normal abdominal wall. Normal osseous structures. CT/Abdomen/Pelvis W IV Cont ONLY IMPRESSION: Large right renal mass worrisome for renal cell carcinoma with neovascularity and possible early metastatic disease with a soft tissue nodule in Morison space and small retroperitoneal lymph nodes. Electronically Signed: Justo Palacio MD at 10:46 EST Tel , Service support ,
== END ==
PROVIDERS: Referring Provider Internal Medicine Medical Oncology; Visit Provider Internal Medicine Medical Oncology
DX: D45 Polycythemia vera (principal)
CPT/HCPCS: 71260; 74177; Q9967

== ENCOUNTER 2020-07-18 09:00 | Outpatient (RCR) | payer MEDICARE, SELFPAY ==
[2020-04-19 16:17] VITALS: BMI 31.2
--- NOTE | 2020-04-25 09:41 | HP.SP.AD_ITS ---
History - History Date of Eval: 04/24/20 Medical Diagnosis (from RX): CVA Date of Onset of Diagnosis: 03/21/20 Previous speech therapy: Yes Results: Evaluation only in the hospital. Other Relevant Medical History/Diagnoses/Surgery: Acute nonhemorrhagic infarct involving the cortex of the left posterior. parietal lobe and a small portion of the posterior insula. Posterior. aspect of the left MCA territory. Medications related to this diagnosis: Blood pressure medication, aspirin, high cholestrol medication. Smoking Status: Never smoker Hx Tobacco Use: No - Pain Is pain an issue with your current prescribed condition?: No - Personal Occupation: Retired Right Hearing Abillity: Hard of Hearing Left Hearing Abillity: Hard of Hearing Visual Assistive Devices: None Patients Living Arrangements: With Significant Other Patient Allergies - Allergies Allergies No Known Allergies Allergy (Verified 04/12/20 09:02) Subjective Cog/Ling/Com - Subjective Cognitive/Linguistic/Communication: Patient reported significant deficits in anything with numbers. Objective Cog/Ling/Com - Test Administered Cbeesigxh-Tvvsptrbnz-Zvylgfttybpfs Assessment Administered: Yes Tcxxuxall-Nvyxzkgmoa-Rhmzvwjyxeyfe Assessment: Cognitive ? Linguistic skills were evaluated using patient/family interview, skilled observation and informal evaluation through tasks completed by the patient. - Orientation Orientation: Person, Date, Birthdate, Medical Diagnosis - Identification Body parts/objects: WNL Colors: WNL Letters: WNL Numbers: WNL - Answer Yes/No Questions Simple: WNL Complex: Mild - Follows Commands 1 Step: WNL - Automatic Sequences Automatic Sequences: WNL - Repetition Words: WNL Sentences: Mild - Conversational Tasks Conversational Tasks: Moderate Comments: Patient had a significant amount of word errors such as fork for cork. Verbal phonemic paraphasias noted. Nearly every sentence had at least one error. Patient was very frustrated by errors. - Reading Picture-Word Matching Picture-Word matching: WNL - Reading Comprehension Words: WNL Sentences: WNL - Oral Reading Words: Severe Comments: Noted perseverated sound after first word. All words that followed had the same initial sound ( all in error) - Writing Functional writing correctly: Name Words: WNL, Mild Comments: Patient is unable to write numbers in word form. Patient was unable to write his phone number. He was able to copy a printed number. - Numerical Skills Counting Money: Patient reported being unable to use hutchins currently. He can not make change. Determining Change: Unable. Numerical Work Problems: Patient stated unable to use numbers for measurement. Balancing Checkbook [place]: Patient is unable to complete anything with checkbook. Plan - Plan Plan: Speech therapy is warranted for expressive and receptive aphasia following his CVA. Deficits in his communication are apparent in all tasks. - Recommendations Treatment Warranted: Yes - Frequency Frequency: 1x/Week Duration: 2 Months - Prognosis Prognosis: Good - Goals that are Established: Determination:: Goals will be added/modified as deemed necessary and appropriate. Therapy will be discontinued when results of re-evaluation indicate therapy is no longer needed or lack of progress has been documented. - Goal #1-5 Goal #1: Jermaine will participate in tasks which require numerical processing including but not limited to addition, substration, and measurements on 4/5 trials on 2/3 consecutive sessions. Goal #2: Jermaine will complete money handling tasks including but not limited to counting hutchins, determining change and checkbook handling on 4/5 trials on 2/3 consecutive sessions. Goal #3: Further evaluation of expressive deficits regarding paraphasia. Education - Patient has Indicated that the Following Identified Educational Needs: None The Patient has indicated that they have no educational or learning abilities that may effect their care.: Yes - Patient Instruction Patient Education: Diagnosis, Treatment Plan, Goals Person Taught: Patient Teaching Method: Discussion Response to teaching: Verbalize understanding
--- NOTE | 2020-07-18 10:39 | HP.SP.DC_ITS ---
ST Discharge Summary - Discharged: Discharge: Jermaine Salas is discharged from [facility] speech therapy as of July 18, 2020 following the completion of 7 therapy sessions. His initial evaluation was on 04-24-20 following his CVA in February 2020. The focus of therapy was on anomia strategies as well as numerical processing including hutchins and checkbook handling. He continues to have mild anomia, however, he is able to correct 90% independently. He is able to count hutchins, handle change, and complete a checkbook with the use of a calculator. He is independently completing these tasks. No further therapy is necessary at this time. Thank you for allowing me to participate in the care of this patient. A copy of this discharge summary will be sent to his referring physician.
== END 2020-07-18 19:00 | disposition home or self-care (01) ==
LOC: SP 09:00
PROVIDERS: Referring Provider Psychiatry & Neurology Sleep Medicine; Visit Provider Psychiatry & Neurology Sleep Medicine
DX: I69.320 Aphasia following cerebral infarction (principal)
CPT/HCPCS: 92507

== ENCOUNTER → 2023-10-09 | Outpatient (CLI) | payer MEDICARE, SELFPAY ==
--- NOTE | 2023-10-09 07:55 | CT_ITS ---
STUDY: CT MAXILLOFACIAL SINUSES REASON FOR EXAM: Male, 73 years old. Other chronic sinusitis RADIATION DOSAGE (If Supplied By Facility): CTDIvol = ( 33.06 ) mGy, DLP = ( 817.32 ) mGycm TECHNIQUE: The patient was scanned in a multi detector CT scanner. High resolution axial imaging was performed without the administration of intravenous contrast material. Sagittal and coronal images were reconstructed. Individualized dose optimization techniques were used for this CT. COMPARISON: None. FINDINGS: FRONTAL SINUSES: Opacification of the left frontal sinus. MAXILLARY SINUSES: There is a 6 cm x 3.8 cm x 5.2 cm soft tissue mass obliterating the left maxillary sinus with extension into the left ethmoid sinus and the sphenoid sinuses. There is evidence of bony destruction along the anterior wall of the left maxillary sinus as well as the medial wall of the left maxillary sinus. The soft tissue mass also involves the base of the left maxillary bone. Atherosclerotic plaque formation of the vertebral arteries in the carotid arteries bilaterally. 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 Mucosal thickening of the right maxillary sinus. Electronically Signed: Maxi Mujica MD at 9:12 EDT ,
== END | disposition home or self-care (01) ==
PROVIDERS: PCP Family Medicine; Referring Provider Otolaryngology Otolaryngology/Facial Plastic Surgery; Visit Provider Otolaryngology Otolaryngology/Facial Plastic Surgery
DX: J32.8 Other chronic sinusitis (principal)
CPT/HCPCS: 70486

== ENCOUNTER 2023-11-23 08:44 | Day surgery (SDC) | payer MEDICARE, SELFPAY ==
[2023-11-23] VITALS (8 sets, daily range): BP systolic 93–145; BP diastolic 60–101; PULSE 76–88; RESP 16–18; TEMP 36.1–36.4; O2SAT 92–97; BMI 32.5
[2023-11-23] MEDS: Lactated Ringers 1,000 ML 15 ML IV (09:42)
--- NOTE | 2023-11-23 09:57 | PRE.ANES_ITS ---
ASA Classification* ASA Classification ASA Classification: 3 Assessment & Plan Anesthesia* Anesthesia Assessment Anesthesia Assessment: Discussed sedation and/or anesthesia options, risks, benefits, and alternatives with patient/parents/legal guardian/POA. Questions invited. The patient/parents/legal guardian/POA seems to understand and agrees to proceed with anesthesia plan. Reviewed the physical assessment, medical history, allergy history and patient home medications list prior to surgery/procedure/anesthetic and documented any changes. Performed airway and anesthesia risk assessments. Anesthesia Type Anesthesia Type: MAC History Source History Obtained from:: Patient and Chart Anesthesia Focused Assessment* Temperature: 97.5 F Pulse Rate: 88 Blood Pressure: 132/101 Respiratory Rate: 16 Pulse Ox: 97 Oxygen Delivery Method: Room Air Airway Assessment Mouth opens: >3 cm Mallampati Score: I Teeth Condition: Missing (Several missing teeth. Rest of the teeth are tight.) Neck Range of motion (ROM): Full ROM Focused Labs Anesthesia Preop lab: CBC WBC 7.9 K/mm3 (4.4-11.0) 11/10/23 10:42 RBC 5.53 M/mm3 (4.6-6.2) 11/10/23 10:42 Hgb 17.2 g/dL (13.0-16.5) H 11/10/23 10:42 Hct 51.4 % (40-54) 11/10/23 10:42 Plt Count 283 K/mm3 (150-450) 11/10/23 10:42 CHEMISTRY Potassium 4.5 mmol/L (3.5-5.1) 11/10/23 10:42 Sodium 134 mmol/L (136-145) L 11/10/23 10:42 BUN 9 mg/dL (7-18) 11/10/23 10:42 Creatinine 1.19 mg/dL (0.70-1.30) 11/10/23 10:42 Glucose 118 mg/dL (74-106) H 11/10/23 10:42 POC Glucose 114 mg/dL (70-110) H 03/21/20 11:38 COAG PT 13.0 SECONDS (11.7-14.9) 03/21/20 11:40 Pre-Assessment Diagnosis/Proposed Procedure Planned Operative Procedure(s): LEFT IJ PORT Anesthesia History 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 When Was Last Pacemaker Check QUESTION #4 FULL TEXT: You/Your Family Experience fever (hyperthermia) with Anesthesia Last Oral Intake Last Oral intake: Last Oral Intake NPO since 18:00 11/23/23 09:27 Meds taken in AM with sips of Yes 11/23/23 09:27 water? Meds patient instructed to take am of surgery PONV PONV - production quality analyst: PONV - production quality analyst Female No 11/18/23 13:46 HX of Motion Sickness No 11/18/23 13:46 HX of N/V After Surgery No 11/18/23 13:46 Non-Smoker Yes 11/18/23 13:46 Duration of Surgery greater No 11/18/23 13:46 than 60 minutes Number of Risk Factors 1 11/18/23 13:46 PONV Score Low Risk 11/18/23 13:46 Height & Weight Height & Weight: Anesthesia: Height & Weight Height 5 ft 10 in 11/23/23 09:27 Weight: 103 kg 11/23/23 09:27 Body Mass Index (BMI) 32.5 11/23/23 09:27 Respiratory Assessment Respiratory Assessment - production quality analyst: Respiratory Tract Infection Hx - production quality analyst Hx Respiratory Tract Infection No 11/18/23 13:46 Any additional information?: Yes Hx Respiratory Tract Infection: Yes (Nasal congestion. With postnasal drainage.) STOP Sleep Apnea STOP Sleep Apnea - production quality analyst: STOP Sleep Apnea - production quality analyst Hx Hypertension Yes: CONTROLLED WITH MED 11/18/23 13:46 Hx Sleep Apnea No 11/18/23 13:46 CPAP BIPAP Do you snore loudly (louder No 11/18/23 13:46 than talking or can be heard Do you often feel tired/ Yes 11/18/23 13:46 fatigued/ sleepy during daytime? Has anyone observed you stop No 11/18/23 13:46 breathing during sleep? STOP Results Positive 11/18/23 13:46 QUESTION #5 FULL TEXT : Do you snore loudly (louder than talking or can be heard through closed doors)? 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 Specify any problems Hx of Preganancy in last 3 N/A 11/18/23 13:46 Months Nurse Filling Out Transfusion DSCHRIBER 11/18/23 13:46 & Questions: Date: 11/18/23 11/18/23 13:46 Time: 13:48 11/18/23 13:46 Patient unable to answer at this time (ie. confused, unrespo /Reproduction History /Reproductive History - production quality analyst: /Reproductive Hx- production quality analyst Hx Now No 11/18/23 13:46 Gestational Age (in weeks): EDC: Hx Hx Para Hx Section SAB No 11/18/23 13:46 Active Medications Active Medications: Current Medications Generic Name Dose Route Start Last Admin Trade Name Freq PRN Reason Stop Dose Admin Cefazolin Sodium 2 gm/ Sodium 110 mls @ 150 mls/hr 11/23/23 10:30 Chloride IV 11/23/23 11:13 PREOP ONE Lactated Ringer's 1,000 mls @ 15 mls/hr 11/23/23 09:00 11/23/23 09:42 IV 15 mls/hr .Q48H KARSON Administration PFSH Medical History Arthritis Heartburn Non-smoker Leg cramps History of echocardiogram Hypertension History of renal carcinoma Maxillary sinus mass High cholesterol Polycythemia vera Stroke Home Medications ?Medication ?Instructions ?Recorded ?Last Taken ?Type amlodipine 5 mg tablet 5 mg PO DAILY bp 03/21/20 11/23/23 History aspirin 81 mg chewable tablet 81 mg PO DAILY@0800 ##30 03/22/20 Unknown Rx pravastatin 20 mg tablet 20 mg PO DAILY 11/05/23 Unknown History Allergy/AdvReac Type Severity Reaction Status Date / Time lisinopril Allergy Unknown unknown Verified 11/23/23 09:26 rosuvastatin Allergy Unknown unknown Verified 11/23/23 09:26 Family History Mother Breast cancer metastasized to bone Surgical History History of nephrectomy Social History household members: spouse Smoking Status: Never smoker Review of Systems (Anesthesia) ROS Narrative System reviewed and no additional complaints, except as documented.
--- NOTE | 2023-11-23 10:12 | HP.PCM_ITS ---
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 Is patient in pain?: Yes (left cheek soreness) Allergies lisinopril Allergy (Unknown, Verified 11/16/23 14:13) unknownrosuvastatin Allergy (Unknown, Verified 11/16/23 14:13) unknown Medications ?Medication ?Instructions ?Recorded ?Confirmed ?Type amlodipine 5 mg tablet 5 mg PO DAILY bp 03/21/20 11/16/23 History aspirin 81 mg chewable tablet 81 mg PO DAILY@0800 ##30 03/22/20 11/16/23 Rx pravastatin 20 mg tablet 20 mg PO DAILY 11/05/23 11/16/23 History Have you fallen in the past year?: No PFSH Medical History Hyperlipemia Hypertension History of renal carcinoma Maxillary sinus mass High cholesterol Polycythemia vera Stroke Surgical History History of nephrectomy Family History Mother Breast cancer metastasized to bone Social History household members: spouse Smoking Status: Former smoker HPI HPI HPI: The patient is here for port placement. Patient has a renal cell carcinoma of the left side of face. ROS General General: Yes fatigue; No weight change, appetite, colon cancer, breast cancer or weakness HEENT HEENT: No difficulty swallowing, eye injury, eye surgery, swollen glands or hoarseness Endo Endocrine: No thyroid disease, diabetes mellitus, thyroid cancer, Hair loss, heat intolerance or cold intolerance Skin Skin: No rash or changing moles Breast Breast: No left breast lump, right breast lump, nipple discharge, breast pain, abnormal mammogram, abnormal US or breast enlargement Musc Musculoskeletal: No back problems, arthritis, rheumatoid arthritis, gout or joint pain Cardio Cardiovascular: Yes high blood pressure; No murmur, pacemaker, heart disease, atrial fibrillation, heart attack, heart stent, palpitations, shortness of breat with exertion or chest pain Psych Psychiatric: No depression, anxiety or hearing voices Resp Respiratory: No shortness of breath, No sleep apnea, No cough, No COPD, No asthma, No emphysema and No wheezing Gastro Gastrointestinal: No abdominal pain, No nausea or vomiting, No diarrhea, No constipation, No blood in stool, No acid reflux, No hemorrhoids, No ulcers, No gallbladder problem and No black,tarry stools Rene Hematologic: No blood thinners, No blood disorders, No bleeding, No anemia and No blood clots Neuro Neurologic: No system reviewed and no additional complaints, except as documented, No as per HPI, No abnormal gait, No abnormal hearing, No abnormal movements, No abnormal speech, No behavioral changes, No burning sensations, No confusion, No convulsions, No disequilibrium, No dizziness, No localized weakness, No frequent falls, No headache(s), No lack of coordination, No loss of vision, No memory loss, No numbness, No other visual disturbances, No radicular pain, No restless legs, No sensory deficit, No syncope, No tingling, No tremor(s), No weakness and No other Exam Const General: cooperative Orientation: alert and oriented x3 HENMT Head: normal to inspection Neck Neck: normal visual inspection and full ROM Chest Chest palpation & inspection: normal inspection of the chest Resp Effort & Inspection: normal respiratory effort Auscultation: clear to auscultation bilaterally Cardio Rate: regular rate Rhythm: regular rhythm GI Inspection: non-distended Palpation: soft and nontender Skin General: no rashes or lesions noted Neuro General: patient alert and patient oriented x3 Extrem General: full ROM Psych Appearance: grossly normal Mental Status: mental status grossly normal Assessment and Plan Assessment and Plan (1) Metastatic clear cell carcinoma of kidney: Status: Acute Comment: Involving L Maxillary sinus, nasal cavity. Discussed metastatic renal cell cancer, incurable disease, treatment with Immunotherapy, poor response to chemotherapy, Radiation therapy. Pt wants Immunotherapy. (2) Encounter for insertion of venous access port: Status: Acute Plan I discussed the port placement with the patient in detail. 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 I discussed left-sided chest port placement with the patient in detail. I discussed the risks including but not limited to bleeding, infection, pneumothorax or line infection. Patient understands the risks and is willing to proceed. Wesley Ramey MD Pager: [facility] [address] [place] [address], [address] [place] [address] Office: I have examined the patient and the H&P has been reviewed. There are no clinical changes since date of exam.
[2023-11-23] MEDS: Cefazolin 2 GM in 0.9% Normal Saline (100mL Bag) 100 ML IV (10:28)
[2023-11-23] MEDS: Lidocaine 1% /Epi 1:100 (20ml) 20 ML Vial (10:57)
[2023-11-23] MEDS: Bupivacaine Mpf 0.5% 30 ML VIAL (10:57)
--- NOTE | 2023-11-23 11:08 | PCM.POST.ANE ---
Anesthesia: Postop Eval I Current Vital Signs Temperature: 97 F Pulse Rate: 82 Blood Pressure: 93/60 Respiratory Rate: 18 Pulse Ox: 95 Oxygen Delivery Method: Room Air Assessment Airway patent: Yes Spontaneous unlabored respirations: Yes Mental status: Awake and Calm nausea: No Vomiting: No Anesthesia Complication: No Fluid Hydration Crystalloid volume administer (ml): 300 Total IV fluid infused: 300 Progress Note Anesthesia document: Postop Eval 1 completed: Yes
--- NOTE | 2023-11-23 11:21 | OP.PCM_ITS ---
Report of Operation Date of Procedure: 11/23/23 Pre-Operative Diagnosis: Need for vascular access for chemotherapy for renal ce ll carcinoma Post-Operative Diagnosis: Same Surgery/Procedure Performed:: Ultrasound and fluoroscopy guided left chest port placement utilizing left IJ Type of Anesthesia: Local MAC Specimen's removed: None Estimated Blood Loss (mL): 10 Description of Procedure: After obtaining informed consent patient was brought back to the operating room MAC anesthesia was induced and the left chest and neck were prepped in normal sterile fashion. Ultrasound was used to evaluate both IJs and the left IJ was selected. Next, using a needle, the left IJ was accessed and a guidewire was passed on into the superior vena cava under fluoroscopy guidance. A small incision was made over the puncture site and the dilator introducer was placed over the guidewire. Next this was capped and the pocket was made for the port. 1% lidocaine with epinephrine was injected in the proposed port site. An incision was made with scalpel. Electrocautery was used to make a pocket under the skin and subcutaneous tissue. Hemostasis was obtained. Next, the catheter was tunneled up to the neck incision site and placed through the introducer. The peel-away introducer was removed and the position of the catheter was confirmed on fluoroscopy. Next, the catheter was trimmed and attached to the port with the locking device. Interrupted 2-0 Vicryl sutures were used to anchor the port to the chest wall and then the port was placed inside the pocket. The pocket was then flushed with saline and the port irrigated with saline. There was good blood return and the port flushed easily. Next, heparin was injected into the port. The skin was closed with subcutaneous interrupted 3-0 Vicryl sutures. A single 3-0 Vicryl sutures placed under the skin at the neck incision site. Steri-Strips were placed as well as op sites. Patient tolerated procedure well, was taken to PACU in stable condition. Chest x-ray will be obtained. Grafts/Implants Used: 8 [employer]azight PowerPort
--- NOTE | 2023-11-23 11:22 | EX.PCM.DISCH ---
Discharge Instructions Diet Discharge Diet: Light diet - advance as tolerated Activity Discharge Activity: Return to Normal Activity and May Shower (with your bandage in place in 1 to 2 days after surgery. DO NOT SHOWER WHEN YOUR PORT IS ACCESSED.) Lifting Restrictions: 15 pounds for 2 days Additional Activity Instructions:: Resume aspirin tomorrow Dressing / Incision Call your doctor if your incision/area has: Continuous Slow Oozing, Sudden Increased Bleeding, Increased Pain/ Swelling, Increased Redness and Foul Smelling Discharge Call your doctor if you observe: Fever of 101 or Higher Remove Dressing in: 2 days Cleanse incision/area with: Soap & Water Follow Up Care Please Follow Up With: Wesley Ramey MD When: As needed at [phone] Test Results: Test results from this visit will be discussed in further detail at your follow-up appointment, if applicable. Discharge Plan Admission Attending Provider: Wesley Ramey Primary Care Provider: Ty Velasquez Instructions Print Language: Vietnamese Discharge Orders/Prescriptions Prescriptions: No Action pravastatin 20 mg tablet 20 mg PO DAILY amlodipine 5 MG tablet 5 mg PO DAILY aspirin 81 MG tablet,chewable 81 mg PO DAILY@0800 Qty: 30 0RF Referrals / Follow Up: Ty Velasquez MD [Primary Care Provider] - Disposition Disposition (needs filled in before D/C Order can be placed): Home, Self Care
--- NOTE | 2023-11-23 11:30 | RAD_ITS ---
STUDY: X-RAY CHEST REASON FOR EXAM: Male, 73 years old. Line placement -- in pacu TECHNIQUE: Single AP portable view of the chest. COMPARISON: Comparison is made with prior study dated March 21, 2020. FINDINGS: A left-sided Port-A-Cath has been placed. The tip is at the junction of the superior vena cava and right atrium. The lungs are clear and expanded. There is no demonstrated pleural abnormality. Normal size heart. Normal mediastinum and demetrius. Normal visualized pulmonary arteries. There is atherosclerotic calcification of the aortic arch with tortuosity. There are degenerative changes of the visualized thoracic spine. Normal visualized ribs, clavicles, and shoulders. There is no demonstrated abnormality of the visualized soft tissue structures of the upper abdomen. RAD/CXR for Line Placement IMPRESSION: The tip of the left-sided portacatheter is at the junction of the superior vena cava and right atrium. Electronically Signed: Maxi Mujica MD at 12:01 EDT ,
--- NOTE | 2023-11-23 14:01 | POSTOPAN2_ITS ---
Anesthesia Postop Eval I Sum Postop Eval Completion status Anesthesia document: Postop Eval 1 completed: Yes Anesthesia Postop Eval I Summary Anesthesia Postop Eval I Summary: Anesthesia Postop Eval I: Assessment Summary Airway patent Yes 11/23/23 11:09 [email or web address] Spontaneous unlabored Yes 11/23/23 11:09 [email or web address] [email or web address] respirations Mental status Awake,Calm 11/23/23 11:09 [email or web address] nausea No 11/23/23 11:09 [email or web address] [email or web address] Vomiting No 11/23/23 11:09 UPKEEP [email or web address].[facility] Anesthesia Postop Eval I: Fluid Summary Crystalloid volume administer 300 11/23/23 11:09 [email or web address] [email or web address] (ml) Colloids volume administered ( ml) Blood Product volume administered (ml) Total IV fluid infused 300 11/23/23 11:09 UPKEEP [email or web address].[facility] Anesthesia Postop Eval I: Summary Notes Anesthesia Complication No 11/23/23 11:09 UPKEEP [email or web address].[facility] Anesthesia Complication Comment: Post-operative progress note Anesthesia: Postop Eval II Evaluation Mental status: Awake and Calm Pain Level: 1 nausea: No Vomiting: No Complications Anesthesia Complication: No
--- NOTE | 2023-11-23 14:01 | PCM.POSTANE2 ---
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 Spontaneous unlabored Yes 11/23/23 11:09 HEATING ELEMENT BUILDER.[email or web address] respirations Mental status Awake,Calm 11/23/23 11:09 HEATING ELEMENT [email or web address].[email or web address] nausea No 11/23/23 11:09 HEATING ELEMENT BUILDER.[email or web address] Vomiting No 11/23/23 11:09 [facility]MENT [facility] Anesthesia Postop Eval I: Fluid Summary Crystalloid volume administer 300 11/23/23 11:09 HEATING ELEMENT BUILDER.SCHR (ml) Colloids volume administered ( ml) Blood Product volume administered (ml) Total IV fluid infused 300 11/23/23 11:09 HEATING ELEMENT BUILDER.[facility] Anesthesia Postop Eval I: Summary Notes Anesthesia Complication No 11/23/23 11:09 HEATING ELEMENT BUILDER.[facility] Anesthesia Complication Comment: Post-operative progress note Anesthesia: Postop Eval II Evaluation Mental status: Awake and Calm Pain Level: 1 nausea: No Vomiting: No Complications Anesthesia Complication: No
== END 2023-11-23 12:16 | disposition home or self-care (01) ==
LOC: SDC 08:50 → AC 08:50
PROVIDERS: PCP Family Medicine; Referring Provider Surgery; Visit Provider Surgery
PROC: (CPT 36561; principal; 2023-11-23 10:15)
DX: Z45.2 Encounter for adjustment and management of vascular access device (principal); C64.9 Malignant neoplasm of unspecified kidney, except renal pelvis; I10 Essential (primary) hypertension; E78.00 Pure hypercholesterolemia, unspecified; Z79.82 Long term (current) use of aspirin; Z79.899 Other long term (current) drug therapy; Z86.73 Personal history of transient ischemic attack (TIA), and cerebral infarction without residual deficits; Z87.891 Personal history of nicotine dependence
CPT/HCPCS: 36561; 00532; 71045; 77001; J7120; C1769; C1788; J2405

== ENCOUNTER → 2024-01-07 | Outpatient (CLI) | payer MEDICARE, SELFPAY ==
--- NOTE | 2024-01-07 14:25 | CT_ITS ---
EXAM: CT HEAD WITHOUT AND WITH INTRAVENOUS CONTRAST CLINICAL INDICATION: head trauma on ASA, r/o bleed TECHNIQUE: Multiple axial images were obtained of the head without and with intravenous contrast. This CT exam was performed using one or more of the following dose reduction techniques: automated exposure control, adjustment of the mA and/or kV according to patient size, and/or use of iterative reconstruction technique. CONTRAST: IV 50mL [id number] COMPARISON: PET CT scan 11/17/2023 CT facial bones 10/09/2023 FINDINGS: BRAIN AND EXTRA-AXIAL SPACES: No hemorrhage or mass effect. No acute ischemia. Areas of diminished white matter density noted within both cerebral hemispheres suggestive of chronic microvascular change. Prominence of the cortical sulci and ventricles related to volume loss change. Chronic left parietal cortical infarct is noted. Prominence of the cortical sulci and ventricles related to volume loss change. Posterior fossa is normal. Basilar cisterns are patent. BONES/JOINTS: Normal calvarium. SINUSES: See below. MASTOID AIR CELLS: Normal. Clear. ORBITS: Persistent proptosis of the left globe. NASOPHARYNX: A large necrotic appearing mass again noted involving the left maxilla extending to the left side of the nasopharynx and left ethmoids sinus. Persistent opacification of the sphenoid sinuses. Interval clearing of the opacified left frontal sinus. CT/Brain/Head W/WO Contrast IMPRESSION: 1. No acute intracranial abnormality. Chronic ischemic changes as described. 2. Persistent large necrotic mass involving the left maxilla and left maxillary and ethmoid sinuses. Electronically Signed: Castro Flowers MD at 14:57 EDT ,
[2024-01-07] MEDS: 0.9% Saline Lock 10 ML Syringe IV (14:35)
== END | disposition home or self-care (01) ==
LOC: CT 14:09
PROVIDERS: PCP Family Medicine; Referring Provider Nurse Practitioner Family; Visit Provider Nurse Practitioner Family
DX: S09.90XA Unspecified injury of head, initial encounter (principal); C64.9 Malignant neoplasm of unspecified kidney, except renal pelvis; W19.XXXA Unspecified fall, initial encounter
CPT/HCPCS: 70470; Q9967; A4216